=== PATIENT | female | born 1990 | race Caucasian/White ===

== ENCOUNTER 2022-12-27 16:30 | Outpatient (CLI) | payer BC ==
[2022-12-27 21:18] LABS: BILIRUBIN,URINE NEGATIVE (NEGATIVE); GLUCOSE, URINE (UA) NEGATIVE (NEGATIVE); KETONES,URINE (UA) NEGATIVE (NEGATIVE); LEUKOCYTE ESTERASE, URINE NEGATIVE (NEGATIVE); NITRITE,URINE NEGATIVE (NEGATIVE); OCCULT BLOOD,URINE NEGATIVE (NEGATIVE); PH,URINE 5.5 PH (5.0-7.5); PROTEIN,URINE NEGATIVE (NEGATIVE); UROBILINOGEN,URINE 0.2 (NORMAL) E.U./dL (NORMAL)
[2022-12-27 21:21] LABS: CLARITY,URINE CLEAR (CLEAR)
[2022-12-27 21:39] LABS: BACTERIA,URINE Rare /HPF (None Seen); RBC,URINE 0-5 /HPF (0-5); SQUAMOUS EPITHELIAL CELL,UR RARE Squamous (<= Few); WBC,URINE 0-3 /HPF (0-5)
== END 2022-12-27 16:45 | disposition home or self-care (01) ==
LOC: LAB.N 16:30
PROVIDERS: ATTEND Emergency Medicine
DX: R30.0 Dysuria (principal)
CPT/HCPCS: 81001; 87086

== ENCOUNTER 2023-03-27 07:47 | Outpatient (CLI) | payer BC ==
--- NOTE | 2023-03-27 18:42 | Ultrasound Report ---
PROCEDURE: Abdomen Limited INDICATIONS: RUQ PAIN TECHNIQUE: Real-time focused scanning was performed of the abdomen, with image documentation. COMPARISONS: None. FINDINGS: Liver: Liver parenchyma appears mildly heterogeneous and minimally echogenic without focal intrahepa tic lesions or contour nodularity. Gallbladder: Unremarkable. Biliary ducts: Intrahepatic bile ducts are non-dilated. Extrahepatic bile duct caliber measures 4 m m. Normal is 6-7 mm or less in diameter, or 10 mm or less post-cholecystectomy. Pancreas: Visualized portions of the pancreas are sonographically normal. Right kidney: Normal in size and echotexture. Right kidney measures 10.7 cm long. No hydronephrosis or nephrolithiasis. No solid masses. No complex renal cystic lesions which require follow-up. Aorta: Visualized aorta is normal in caliber at less than 3 cm. IVC: Intrahepatic inferior vena cava is patent. Miscellaneous: No free abdominal fluid. IMPRESSION: Unremarkable abdominal ultrasound. Reviewed by: Bang Anton MD on 03/27/2023 6:40 PM PDT Approved by: Bang Anton MD on 03/27/2023 6:40 PM PDT Station ID: [id number]
== END 2023-03-27 07:48 | disposition home or self-care (01) ==
LOC: DI 07:47
PROVIDERS: ATTEND Student in an Organized Health Care Education/Training Program
DX: R10.11 Right upper quadrant pain (principal)